=== PATIENT | female | born 1940 | race Caucasian/White ===

== ENCOUNTER → 2017-07-23 | Outpatient (REF) ==
[~2017-07-23] MED LIST: AMOXICILLIN 50500 MG PO; ATIVAN 1MG T1 MG/TAB PO; BETAPACE160 MG PO; CALCIUM 500500 M2 PO; CARDIZEM120 MG PO; CEPHALEXIN500 M1 PO; COUMADIN 22.5 MG/TAB PO; IPRATROPIUM BROM3 M1 IH; KLONOPIN 1MG1 MG PO; LASIX 20MG TABL20 MG PO; MORPHINE 1515 MG/TAB PO; MS CONTIN 330 MG/TAB PO; PRENATAL1 TA1 PO; REQUIP2 MG PO; RITE AID KRILL500 MG PO; RT SPIRIVA18 MCG IH; VITAMIN D1000 IU PO; XARELTO20 MG PO
== END ==
LOC: ZLAB.WCH 18:06
DX: Z01.89 Encounter for other specified special examinations (principal)